=== PATIENT | female | born 1945 | race Two or more races ===

== ENCOUNTER → 2017-03-16 | Emergency (ER) | payer OTHER ==
[~2017-03-16] VITALS: Ht 160 cm; Wt 74.8 kg
[~2017-03-16] MED LIST: HYDROCHLOROTH12.5 MG; HYDROCODON-ACE1 EAC7; NABUMETONE500 MG; NORVASC2.5 MG
== END | disposition home or self-care (01) ==
LOC: ER 10:01
DX: M54.89 Other dorsalgia (principal); R10.84 Generalized abdominal pain

== ENCOUNTER 2021-11-25 05:38 | Day surgery (SDC) | payer OTHER ==
[~2021-11-25] VITALS: Ht 162.6 cm; Wt 72.6 kg
[~2021-11-25 05:38] MED LIST changes: +ADULT LOW DOSE81 M1 PO; +ALENDRONATE SOD70 MG; +CRESTOR40 MG PO; +CRESTOR5 MG; +MEMANTINE HCL E28 MG PO; +TOPROL XL50 M1; +VASOTEC20 M1; +ZETIA10 MG
== END 2021-11-25 17:45 | disposition home or self-care (01) ==
LOC: CIR.AMB 05:38
PROVIDERS: ATTEND Surgery
DX: C50.411 Malignant neoplasm of upper-outer quadrant of right female breast (principal); Z17.0 Estrogen receptor positive status [ER+]; R59.0 Localized enlarged lymph nodes; Z88.8 Allergy status to other drugs, medicaments and biological substances; I10 Essential (primary) hypertension
CPT/HCPCS: 19281; 19301; 38525; 78195; A9541; L8699

== ENCOUNTER 2021-12-12 23:05 | Emergency (ER) | payer OTHER ==
[~2021-12-12] VITALS: Ht 160 cm; Wt 71.7 kg
[2021-12-12] MEDS ORDERED: ANASTROZOLE1 MG PO (23:17)
== END 2021-12-13 00:58 | disposition left against medical advice (07) ==
LOC: ER 23:05
DX: Z53.21 Procedure and treatment not carried out due to patient leaving prior to being seen by health care provider (principal)

== ENCOUNTER 2022-09-05 11:14 | Emergency (ER) | payer OTHER ==
[~2022-09-05] VITALS: Ht 160 cm; Wt 70.3 kg
[~2022-09-05 11:14] MED LIST changes: +ANASTROZOLE1 MG PO
== END 2022-09-05 16:38 | disposition home or self-care (01) ==
LOC: ER 11:14
DX: M54.16 Radiculopathy, lumbar region (principal); I10 Essential (primary) hypertension; Z88.8 Allergy status to other drugs, medicaments and biological substances